=== PATIENT | female | born 1995 | race African-American/Black ===

== ENCOUNTER 2017-04-08 10:43 | Emergency (ER) | payer BC, OTHER ==
[~2017-04-08] VITALS: Ht 165.1 cm; Wt 138.4 kg
[2017-04-08 10:45] VITALS: TEMP 37.1; Ht 165.1 cm; Wt 138.4 kg
[2017-04-08] MEDS ORDERED: PRENTAB65 PO (10:59)
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
[2017-04-08] MEDS ORDERED: ACETAMINOPHEN 325 MG TAB PO STA (13:04)
[2017-04-08 13:40] VITALS: BP 157/72; PULSE 91; O2SAT 100
== END 2017-04-08 13:41 | disposition home or self-care (01) ==
LOC: C.EDB 10:47 → C.EDC 13:41
DX: S62.630A Displaced fracture of distal phalanx of right index finger, initial encounter for closed fracture (principal); S00.83XA Contusion of other part of head, initial encounter; Y04.0XXA Assault by unarmed brawl or fight, initial encounter; Y92.512 Supermarket, store or market as the place of occurrence of the external cause; M54.2 Cervicalgia; J45.909 Unspecified asthma, uncomplicated; Z33.1 Pregnant state, incidental

== ENCOUNTER → 2017-06-28 | Outpatient (CLI) | payer BC, OTHER ==
[~2017-06-28] MED LIST: PRENTAB65 PO
[2017-06-29 14:57] LABS: URINE APPEARANCE CLEAR (CLEAR); URINE BILIRUBIN NEG (NEG); URINE COLOR DK YELLOW; URINE EPITHELIAL CELL AUTO >30 /lpf (0-5); URINE NITRITE NEG (NEG); URINE PH 6.5 (4.5-7.5); URINE SPECIFIC GRAVITY 1.012 (1.000-1.030); UROBILINOGEN NEG (NEG)
[2017-06-29 14:58] LABS: MANUAL MICROSCOPIC REQUIRED? NO; REVIEW REQ? NO
== END | disposition home or self-care (01) ==
LOC: C.LABSPEC 14:41
PROVIDERS: ATTEND Obstetrics & Gynecology
DX: R30.0 Dysuria (principal)

== ENCOUNTER 2017-07-07 11:50 | Inpatient (IN) | payer BC, OTHER ==
[~2017-07-07] VITALS: Ht 165.1 cm; Wt 137.3 kg
[2017-07-07] MEDS ORDERED: LACTATED RINGER'S 1000ML 1,000 ML IV PRN (20:07)
[2017-07-07] MEDS ORDERED: LACTATED RINGER'S 1000ML 1,000 ML IV SCH (20:07)
[2017-07-07] MEDS ORDERED: PENICILLIN G POTASSIUM IV 6 MU in DEXTROSE 5% 250ML 250 ML IV ONE (20:15)
[2017-07-07] MEDS ORDERED: MISOPROSTOLTAB 50 MCG TAB PO ONE (20:15)
[2017-07-07] MEDS ORDERED: VNTHFA/IN INH (20:21)
[2017-07-07 20:25] VITALS: Ht 165.1 cm; Wt 137.3 kg
[2017-07-07] MEDS ORDERED: MISOPROSTOLTAB 50 MCG TAB ONE (20:53)
[2017-07-07] MEDS ORDERED: PENICILLIN G POTASSIUM IV 6 MU in DEXTROSE 5% 250ML IV SCH (21:00)
[2017-07-07 21:47] LABS: HEMATOCRIT 39.3 % (37-47); MEAN CELL VOLUME 85.1 fL (80-100); MEAN CORPUSCULAR HGB CONC 34.1 g/dl (32-36); MEAN PLATELET VOLUME 10.5 fL (7.4-10.4); PLATELET COUNT 347 K/uL (130-400); RED BLOOD COUNT 4.62 M/uL (4.2-5.4); WHITE BLOOD COUNT 13.74 K/uL (4.8-10.8)
[2017-07-08] MEDS: PENICILLIN G POTASSIUM IV 3 MU in DEXTROSE 5% 100ML 100 ML IV PRN ×6 (01:31→23:08)
[2017-07-08] MEDS ORDERED: NURSING VERBAL MED ORDER ONE (01:45)
[2017-07-08] MEDS ORDERED: MISOPROSTOLTAB 50 MCG TAB PO ONE ×2 (02:15→08:00)
[2017-07-08] MEDS ORDERED: MISOPROSTOLTAB 50 MCG TAB PO STA (07:50)
[2017-07-08] MEDS ORDERED: DINOPROSTONE 10 MG INSERT PV ONE (16:45)
[2017-07-08] MEDS ORDERED: BUTORPHANOL TARTRATE 1 MG/ML VIAL IV PRN (17:15)
[2017-07-08] MEDS ORDERED: BUTORPHANOL TARTRATE 1 MG/ML VIAL ONE (17:16)
[2017-07-09] MEDS: PENICILLIN G POTASSIUM IV 3 MU in DEXTROSE 5% 100ML 100 ML IV PRN ×4 (03:33→16:38)
[2017-07-09] MEDS ORDERED: NURSING VERBAL MED ORDER ONE (03:45)
[2017-07-09] MEDS ORDERED: BUTORPHANOL TARTRATE 1 MG/ML VIAL ONE (03:51)
[2017-07-09] MEDS ORDERED: BUTORPHANOL TARTRATE 1 MG/ML VIAL IV PRN (04:15)
[2017-07-09] MEDS ORDERED: OXYTOCIN 30 UNITS/500ML NSS IV ONE (06:38)
[2017-07-09] MEDS ORDERED: LACTATED RINGER'S 1000ML 500 ML IV PRN ×2 (07:01→10:06)
[2017-07-09] MEDS ORDERED: OXYTOCIN 30 UNITS/500ML NSS IV PRN ×2 (07:15→19:00)
[2017-07-09] MEDS ORDERED: BUPIVACAINE 0.25% 30 ML VIAL ONE (09:15)
[2017-07-09] MEDS ORDERED: EpHEDrine SULFATE INJ 50 MG/ML AMP ONE (09:16)
[2017-07-09] MEDS ORDERED: FENTANYL 2MCG/ML ROPIV 1.25MG/ML 100ML BAG EPI ONE (09:16)
[2017-07-09] MEDS ORDERED: FENTANYL CITRATE INJ 50 MCG/1 ML 2 ML VIAL ONE (09:16)
[2017-07-09] MEDS ORDERED: NALOXONE HCL INJ 1 MG in SODIUM CHLORIDE 0.9% 1000ML 1,000 ML IV PRN (10:06)
[2017-07-09] MEDS ORDERED: FENTANYL 2MCG/ML ROPIV 1.25MG/ML 100ML BAG EPI PRN (10:15)
[2017-07-09] MEDS ORDERED: NALBUPHINE HCL INJ 10 MG/ML AMP IV PRN (10:15)
[2017-07-09] MEDS ORDERED: NALOXONE HCL INJ 0.4 MG/1 ML VIAL/CARP IV PRN (10:15)
[2017-07-09] MEDS ORDERED: EpHEDrine SULFATE INJ 50 MG/ML AMP IV PRN (10:15)
[2017-07-09] MEDS ORDERED: DiphenhydrAMINE HCL 50 MG/ML VIAL IV PRN (10:15)
[2017-07-09] MEDS ORDERED: SUPERCREAM 0.870 % 15GM JAR EXT PRN (19:00)
[2017-07-09] MEDS ORDERED: BENZOCAINE 20% AER SPR 82.5 GM CAN EXT PRN (19:00)
[2017-07-09] MEDS ORDERED: ACETAMINOPHEN 325 MG TAB PO PRN (19:00)
[2017-07-09] MEDS ORDERED: OXYTOCIN INJ 10 UNITS/ML VIAL IM ONE (19:00)
[2017-07-09] MEDS ORDERED: OXYCODONE/ACETAMINOPHEN 5-325 TAB PO PRN (19:00)
[2017-07-09] MEDS ORDERED: HYDROCORTISONE ACETATE 25 MG SUPP PR PRN (19:00)
[2017-07-09] MEDS ORDERED: DIPHTHERIA/TETANUS/PERTUSSIS 0.5 ML SYR/VIAL IM. ONE (19:00)
[2017-07-09] MEDS ORDERED: LANOLIN OINT EXT PRN ×2 (19:00)
--- NOTE | 2017-07-09 19:55 | Anesthesia Procedure Note ---
Anesthesia Epidural Removal Nt Date & Time Jul 09, 2017 at 19:55 Vital Signs Pain Intensity: 10.0 Notes Mental Status: alert / awake / arousable, participated in evaluation Nausea / Vomiting: adequately controlled Pain: adequately controlled Airway Patency, RR, SpO2: stable & adequate BP & HR: stable & adequate Hydration State: stable & adequate Neuraxial Anesthesia: was administered Anesthetic Complications: no major complications apparent, pt satisfied with anesthetic care Epidural: removed without complications, with tip intact
[2017-07-09] MEDS: DOCUSATE SODIUM 100 MG CAP PO SCH (20:24)
[2017-07-09] MEDS: IBUPROFEN 600 MG TAB PO PRN (20:27)
[2017-07-09] MEDS: ACETAMINOPHEN/CODEINE 300/30MG TAB PO PRN ×2 (20:41→20:42)
[2017-07-09 21:50] VITALS: BP 135/76; PULSE 69; TEMP 36.8
[2017-07-09 21:55] VITALS: BP 127/66; PULSE 75; TEMP 36.8
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
[2017-07-10] MEDS: IBUPROFEN 600 MG TAB PO PRN ×4 (00:30→20:21)
[2017-07-10 04:15] VITALS: BP 127/101; PULSE 85; TEMP 36.7
[2017-07-10 07:10] VITALS: BP 129/76; PULSE 77; TEMP 36.7
[2017-07-10] MEDS: ACETAMINOPHEN/CODEINE 300/30MG TAB PO PRN ×3 (07:13→20:21)
[2017-07-10 07:40] LABS: HEMATOCRIT 30.8 % (37-47)
[2017-07-10] MEDS: FERROUS SULFATE 325 MG TAB PO SCH (07:57)
[2017-07-10] MEDS: DOCUSATE SODIUM 100 MG CAP PO SCH ×2 (07:58→20:10)
[2017-07-10] MEDS: PRENATAL VITAMIN TAB PO SCH (07:58)
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
[2017-07-10 12:55] VITALS: BP 114/77; PULSE 86; TEMP 36.7; O2SAT 99
[2017-07-10 15:30] VITALS: BP 138/82; PULSE 89; TEMP 36.7
[2017-07-10 19:30] VITALS: BP 126/77; PULSE 89; TEMP 36.8
[2017-07-10] MEDS ORDERED: BISACODYL 5 MG TABEC PO SCH (20:00)
[2017-07-10 23:15] VITALS: BP 126/80; PULSE 94; TEMP 36.9
[2017-07-11] MEDS: IBUPROFEN 600 MG TAB PO PRN ×3 (01:48→11:28)
[2017-07-11] MEDS: ACETAMINOPHEN/CODEINE 300/30MG TAB PO PRN ×3 (01:49→11:28)
[2017-07-11] MEDS ORDERED: BISACODYL 10 MG SUPP PR PRN (07:00)
[2017-07-11 07:21] VITALS: BP 117/55; PULSE 90; TEMP 36.3; O2SAT 98
[2017-07-11] MEDS: DOCUSATE SODIUM 100 MG CAP PO SCH (08:11)
[2017-07-11] MEDS: FERROUS SULFATE 325 MG TAB PO SCH (08:11)
[2017-07-11] MEDS: PRENATAL VITAMIN TAB PO SCH (08:11)
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
--- NOTE | 2017-07-11 09:18 | Discharge Instructions ---
Discharge Instructions Date of Service Jul 11, 2017. Admission Reason for Admission: Induction Discharge Discharge Diagnosis / Problem: toxemia Discharge Goals Goal(s): Routine recovery after delivery Activity Recommendations Activity Limitations: as noted below ACTIVITY RECOMMENDATIONS: * Gradual return to full activity over the next 2-3 weeks. * No lifting - nothing heavier than baby over the next 2-3 weeks. * Do not engage in vigorous exercise, sexual activity or sports until cleared by your physician. * Do not drive or operate any motorized equipment until cleared by your physician. * You may shower/bathe daily. DIET: Resume Previous Diet If Breast-feeding: * Increase caloric intake by 500 calories, eat 3 well balanced meals, 2 high protein snacks a day and drink 6-8 8oz. glasses of fluid per day. BREAST CARE: If you are not breast feeding: * Wear a supportive bra 24 hours a day for one to two weeks. * Avoid stimulating your breasts and nipples as much as possible during the first few weeks after delivery. * When taking a shower, have the warm water hit your back, not breasts. * When your breasts feel full, apply ice packs. Usually three to four times a day helps ease the discomfort. * Take a mild pain medication (Tylenol / Motrin) when you are uncomfortable. If breast feeding: * Use breast milk to lubricate nipples. Lansinoh cream may be used for sore nipples. You do not need to remove cream prior to breast feeding. If using a different brand of cream, check the label for directions regarding removal of cream prior to nursing. * Wear a supportive bra. * If having problems with breasts or breast feeding, call a identity management consultant or your health care provider. OVER THE COUNTER MEDICATION: * For discomfort or pain, you may use Acetaminophen (Tylenol), Ibuprofen (Advil ), or Naproxen (Aleve) following the package directions. * For constipation you may use Colace following the package directions. SPECIAL CARE INSTRUCTIONS: * Vaginal rest (no tampons, douching, intercourse) until after doctor 's visit. * control as discussed with doctor. * Verbalizes understanding of car seat law as reviewed with patient nursing. * Car Seat hand-out given and reviewed with patient by nursing. * Shaken baby information reviewed with patient by nursing. Call you doctor if: * Temperature greater than or equal to 100.4 degrees F or 38.0 degrees C. Take your temperature twice daily for a week. * Bleeding becomes heavier than the heaviest part of your period - saturating a sanitary pad within an hour. * Passing large clots. * Bleeding has a foul smelling odor. * Signs and symptoms of phlebitis: leg pain, warm, red or swollen area on leg. * "Baby Blues" lasting longer than two weeks. ++ If you have had a and incision has increased pain, redness, swelling, presence of any drainage, or if the incision starts to open up. If you have any questions or concerns, call your health care practitioner at [phone]. FOLLOW-UP VISIT: Please call the office at to schedule a 6 week examination. . Instructions / Follow-Up Instructions / Follow-Up ACTIVITY RECOMMENDATIONS: * Gradual return to full activity over the next 2-3 weeks. * No lifting - nothing heavier than baby over the next 2-3 weeks. * Do not engage in vigorous exercise, sexual activity or sports until cleared by your physician. * Do not drive or operate any motorized equipment until cleared by your physician. * You may shower/bathe daily. DIET: Resume Previous Diet If Breast-feeding: * Increase caloric intake by 500 calories, eat 3 well balanced meals, 2 high protein snacks a day and drink 6-8 8oz. glasses of fluid per day. BREAST CARE: If you are not breast feeding: * Wear a supportive bra 24 hours a day for one to two weeks. * Avoid stimulating your breasts and nipples as much as possible during the first few weeks after delivery. * When taking a shower, have the warm water hit your back, not breasts. * When your breasts feel full, apply ice packs. Usually three to four times a day helps ease the discomfort. * Take a mild pain medication (Tylenol / Motrin) when you are uncomfortable. If breast feeding: * Use breast milk to lubricate nipples. Lansinoh cream may be used for sore nipples. You do not need to remove cream prior to breast feeding. If using a different brand of cream, check the label for directions regarding removal of cream prior to nursing. * Wear a supportive bra. * If having problems with breasts or breast feeding, call a identity management consultant or your health care provider. OVER THE COUNTER MEDICATION: * For discomfort or pain, you may use Acetaminophen (Tylenol), Ibuprofen (Advil ), or Naproxen (Aleve) following the package directions. * For constipation you may use Colace following the package directions. SPECIAL CARE INSTRUCTIONS: * Vaginal rest (no tampons, douching, intercourse) until after doctor 's visit. * control as discussed with doctor. * Verbalizes understanding of car seat law as reviewed with patient nursing. * Car Seat hand-out given and reviewed with patient by nursing. * Shaken baby information reviewed with patient by nursing. Call you doctor if: * Temperature greater than or equal to 100.4 degrees F or 38.0 degrees C. Take your temperature twice daily for a week. * Bleeding becomes heavier than the heaviest part of your period - saturating a sanitary pad within an hour. * Passing large clots. * Bleeding has a foul smelling odor. * Signs and symptoms of phlebitis: leg pain, warm, red or swollen area on leg. * "Baby Blues" lasting longer than two weeks. ++ If you have had a and incision has increased pain, redness, swelling, presence of any drainage, or if the incision starts to open up. If you have any questions or concerns, call your health care practitioner at [phone]. FOLLOW-UP VISIT: Please call the office at to schedule a 6 week examination. Current Hospital Diet Patient's current hospital diet: Regular OB Diet Discharge Diet Recommended Diet: Regular Diet Pending Studies Studies pending at discharge: no Medical Emergencies . Who to Call and When: Medical Emergencies: If at any time you feel your situation is an emergency, please call 911 immediately. . Non-Emergent Contact Non-Emergency issues call your: Metal Dresser Call Non-Emergent contact if: temperature is above 100.5 . . "Provider Documentation" section prepared by Parish Salmeron. . VTE Core Measure Inpt VTE Proph given/why not?: Treatment not indicated
[2017-07-11 12:40] VITALS: BP_DIAS 55; PULSE 90; TEMP 36.3
== END 2017-07-11 12:40 | disposition home or self-care (01) | DRG 775 ==
LOC: C.LD 19:34 → C.OBG 07-09 21:30
PROVIDERS: ADMIT Obstetrics & Gynecology; ATTEND Obstetrics & Gynecology
PROC: 10E0XZZ Delivery of Products of Conception, External Approach (ICD-10-PCS; principal; 2017-07-09)
PROC: 3E0P7GC Introduction of Other Therapeutic Substance into Female Reproductive, Via Natural or Artificial Opening (ICD-10-PCS; principal; 2017-07-09)
PROC: 0UQJXZZ Repair Clitoris, External Approach (ICD-10-PCS; principal; 2017-07-09)
PROC: 0UQG7ZZ Repair Vagina, Via Natural or Artificial Opening (ICD-10-PCS; principal; 2017-07-09)
DX: O14.94 Unspecified pre-eclampsia, complicating childbirth (principal); Z68.43 Body mass index [BMI] 50.0-59.9, adult; Z37.0 Single live birth; O70.0 First degree perineal laceration during delivery; O99.52 Diseases of the respiratory system complicating childbirth; J45.909 Unspecified asthma, uncomplicated; O99.214 Obesity complicating childbirth; E66.9 Obesity, unspecified; Z3A.39 39 weeks gestation of pregnancy

== ENCOUNTER 2020-09-02 19:42 | Inpatient (IN) ==
[2020-09-02] MEDS ORDERED: OXYTOCIN 30 UNITS/500 ML BAG IV PRN (20:09)
[2020-09-02 20:40] LABS: Hematocrit (blood only) 36.9 % (37-47); Hemoglobin 12.2 g/dL (12.0-16.0); Mean Corpuscular Hemoglobin 29.5 pg (25-34); Mean Corpuscular Hgb Conc 33.1 g/dL (32-36); Mean Corpuscular Volume 89.1 fL (80-100); Mean Platelet Volume 10.6 fL (7.4-10.4); Platelet Count 275 K/uL (130-400); RDW Coefficient of Variation 15.2 % (11.5-14.5); RDW Standard Deviation 49.5 fL (36.4-46.3); Red Blood Count 4.14 M/uL (4.2-5.4); White Blood Count 16.17 K/uL (4.8-10.8)
[2020-09-02] MEDS ORDERED: miSOPROStoL 50 MCG TAB PO ONE (20:45)
[2020-09-03] MEDS ORDERED: ONDANSETRON INJ 2 MG/ML 2 ML VIAL IV STA (03:33)
[2020-09-03] MEDS ORDERED: ONDANSETRON INJ 2 MG/ML 2 ML VIAL ONE (03:35)
[2020-09-03] MEDS ORDERED: BUTORPHANOL TARTRATE 1 MG/ML VIAL IV PRN (06:04)
[2020-09-03] MEDS: LACTATED RINGER'S 1,000 ML IV PRN ×2 (06:18→07:58)
[2020-09-03] MEDS ORDERED: OXYTOCIN 30 UNITS/500 ML BAG IV PRN ×2 (06:47→16:00)
[2020-09-03] MEDS ORDERED: ePHEDrine sulfate 50 MG/ML AMP ONE (07:15)
[2020-09-03] MEDS ORDERED: BUPIVACAINE 0.25% 30 ML VIAL ONE (07:15)
[2020-09-03] MEDS ORDERED: SODIUM CHLORIDE 0.9% INJ 10 ML VIAL ONE (07:15)
[2020-09-03] MEDS ORDERED: fentaNYL citrate 100 MCG/2 ML VIAL ONE (07:16)
[2020-09-03] MEDS ORDERED: fentaNYL 2MCG/ML ROPIVACAINE 1.25MG/ML 100 ML BAG EPI ONE (07:16)
[2020-09-03] MEDS ORDERED: ONDANSETRON INJ 2 MG/ML 2 ML VIAL IV PRN (07:42)
[2020-09-03] MEDS ORDERED: NALOXONE HCL 1 MG in SODIUM CHLORIDE 0.9% 1000ML 1,000 ML IV PRN (07:42)
[2020-09-03] MEDS ORDERED: NALOXONE HCL 0.4 MG/1 ML VIAL/CARP IV PRN (07:42)
[2020-09-03] MEDS ORDERED: fentaNYL 2MCG/ML ROPIVACAINE 1.25MG/ML 100 ML BAG EPI PRN (07:42)
[2020-09-03] MEDS ORDERED: ePHEDrine sulfate 50 MG/ML AMP IV PRN (07:42)
[2020-09-03] MEDS ORDERED: diphenhydrAMINE 50 MG/ML VIAL IV PRN (07:42)
--- NOTE | 2020-09-03 07:47 | Anesthesiology Consultation ---
Date of Service September 03, 2020 Assessment & Plan (1) Encounter for pre-operative examination: Chart Review Chart Review: Patient NOT seen in Pre Admission Testing and Acceptable Risk for Labor Epidural Consults Requested none History Height/Weight Height: 5 ft 5 in Weight: 127.006 kg Allergies Allergy/AdvReac Type Severity Reaction Status Date / Time pollen extracts Allergy Intermediate ITCHY Verified 06/13/20 02:34 EYES, SNEEZING, CONGESTION Medications Home Medications Medication Instructions Recorded Confirmed Last Taken PNV,calcium 30-gfwa-efexl acid 1 tab PO DAILY 06/13/20 09/02/20 09/02/20 [PrePlus] Active Medications Generic Name Dose Route Start Last Admin Trade Name Freq PRN Reason Stop Dose Admin Butorphanol Tartrate 1 mg 09/03/20 06:04 09/03/20 06:18 Butorphanol Tartrate 1 Mg/Ml Vial IV 10/03/20 06:03 1 mg PRN PRN Administration Pain Lactated Ringer's 1,000 mls @ 125 mls/hr 09/02/20 20:09 09/03/20 07:58 Lr IV 09/04/20 20:08 125 mls/hr .Q8H PRN Administration L&D Protocol Protocol Oxytocin 30 units in 500 mls @ 2 mls/hr 09/03/20 06:47 09/03/20 07:07 Pitocin IV 09/05/20 06:46 0.12 units/hr .Q24H PRN 2 mls/hr Labor Induction/Augmentation Administration Protocol 0.12 UNITS/HR Past Medical History Medical History Abnormal vaginal bleeding Asthma Miscarriage Morbid obesity with BMI of 45.0-49.9, adult Recurrent dislocation, right shoulder Status post elective Toxemia of Exercise / Class Metabolic Activity II 4-5 Yardwork/Stairs/Walk up hill Past Surgical History Surgical History History of dilatation and curettage Past Anesthesia History No Hx of Anesthesia Complications and No Family Hx of Anesthesia Complications History of PONV No Hx of PONV and No Hx of Motion Sickness Social History Smoking Status: Former smoker Do You Dip or Chew Tobacco: No Hx Alcohol Use: No Hx Substance Use: No substance use type: does not use Physical Exam Vital Signs Last Vital Signs Temp 36.6 C 09/03/20 07:00 Pulse 76 09/03/20 08:08 Resp 18 09/03/20 07:00 BP 129/75 09/03/20 07:02 Pulse Ox 100 09/03/20 08:08 Testing Laboratory Results 09/02/20 20:27
[2020-09-03] MEDS ORDERED: NURSING L&D Epidural Breakthrough Pain Update ONE (12:00)
[2020-09-03] MEDS ORDERED: miSOPROStoL 200 MCG TAB ONE (15:52)
[2020-09-03] MEDS ORDERED: miSOPROStoL 200 MCG TAB PR ONE (16:00)
[2020-09-03] MEDS ORDERED: DIPHTHERIA/TETANUS/PERTUSSIS 0.5 ML SYR/VIAL IM ONE (16:00)
[2020-09-03] MEDS ORDERED: ACETAMINOPHEN W/CODEINE #3 1 TAB PO PRN (16:00)
[2020-09-03] MEDS ORDERED: SUPERCREAM 0.870% 15 GM JAR EXT PRN (16:00)
[2020-09-03] MEDS ORDERED: HYDROCORTISONE ACETATE 25 MG SUPP PR PRN (16:00)
[2020-09-03] MEDS ORDERED: oxyCODONE/ACETAMINOPHEN 5mg/325mg TAB PO PRN (16:00)
[2020-09-03] MEDS ORDERED: BENZOCAINE 20% AER SPR 82.5 GM CAN EXT PRN (16:00)
--- NOTE | 2020-09-03 17:14 | Anesthesia Procedure Note ---
Date of Service September 03, 2020 Anesthesia Post Epidural Note Vital Signs Vital Signs: Temp Pulse Resp BP Pulse Ox 37.0 C 79 24 140/60 91 09/03/20 15:04 09/03/20 17:09 09/03/20 15:30 09/03/20 17:09 09/03/20 15:39 Notes Mental Status: alert / awake / arousable and participated in evaluation Patient Amnestic to Procedure: No Nausea / Vomiting: adequately controlled Pain: adequately controlled Airway Patency, RR, SpO2: stable & adequate BP & HR: stable & adequate Hydration State: stable & adequate Neuraxial Anesthesia: was administered and sensory block is resolving Anesthetic Complications: no major complications apparent and Pt Satisfied with anesthetic care Epidural: Removed without complications and With tip intact
--- NOTE | 2020-09-03 17:22 | Delivery Summary ---
DATE OF OPERATION: 09/03/2020 She is a 4, para 2, blood type is O negative, group B strep negative, was brought in for induction at 40 weeks, was given p.o. Cytotec. The following morning, she had dilated up to about 4-5 cm, was switched to IV Pitocin. She eventually went and had an epidural, from which she got good pain relief. She had her membranes then ruptured surgically, went to full dilatation, pushed out a live via direct occiput anterior position over an intact perineum. There was some terminal bradycardia, we turned off the Pitocin, gave her oxygen. Infant was born spontaneously. Cord was allowed to clamp for 1 minute, then it was clamped and cut by the mother. Cord blood was taken. With IV Pitocin running, the placenta was removed intact. Inspection of the perineum revealed a periurethral laceration on the right side. This was extended, which was carefully identified. It was sewn with a running 3-0 chromic gut suture. A red rubber catheter was then inserted into the urethra and into the bladder. Urine was obtained to ensure patency of the urethra. We had a little bit more than average bleeding. So we gave her 800 mcg of rectal Cytotec and with that, she contracted nicely. Estimated blood loss was 300 mL. Apgars were deferred to the nurses. I attest to the content of the Intraoperative Record and any orders documented therein. Any exception s are noted below.
[2020-09-03] MEDS ORDERED: DOCUSATE SODIUM 100 MG CAP PO ONE (19:48)
[2020-09-03] MEDS: IBUPROFEN 600 MG TAB PO PRN (21:27)
[2020-09-03] MEDS: DOCUSATE SODIUM 100 MG CAP PO SCH (23:38)
[2020-09-03] MEDS: ACETAMINOPHEN 325 MG TAB PO PRN (23:49)
[2020-09-04] MEDS: IBUPROFEN 600 MG TAB PO PRN ×2 (03:04→13:27)
[2020-09-04 07:08] LABS: Hematocrit (blood only) 33.3 % (37-47); Mean Corpuscular Hemoglobin 29.5 pg (25-34); Mean Corpuscular Volume 89.3 fL (80-100); Mean Platelet Volume 10.7 fL (7.4-10.4); Platelet Count 245 K/uL (130-400); RDW Standard Deviation 49.3 fL (36.4-46.3); Red Blood Count 3.73 M/uL (4.2-5.4); White Blood Count 13.86 K/uL (4.8-10.8)
[2020-09-04] MEDS: ACETAMINOPHEN 325 MG TAB PO PRN (07:38)
[2020-09-04] MEDS: DOCUSATE SODIUM 100 MG CAP PO SCH (07:38)
[2020-09-04] MEDS ORDERED: PRENATAL VITAMIN 1 TAB PO SCH (08:00)
--- NOTE | 2020-09-04 10:04 | Obstetrical Progress Note ---
Date of Service September 04, 2020 Assessment & Plan Admission and Anticipated Discharge Date Admission Date: September 02, 2020 Physical Exam Physical Exam: abdomen soft and non tender no calf tenderness ambulating well vaginal bleeding scant hgb 11.1 Results & Data ([facility]) Vital Signs (Past 12 Hours) Vital Signs Temp Pulse Pulse Resp BP BP 09/04/20 08:25 37.0 C 69 20 120/70 09/04/20 04:50 36.8 C 65 18 102/59 L 09/03/20 23:50 36.2 C L 75 18 122/69
[2020-09-04] MEDS ORDERED: bisacodyL 5 MG TABEC PO SCH (20:00)
[2020-09-05] MEDS ORDERED: bisacodyL 10 MG SUPP PR PRN (09:00)
== END 2020-09-04 16:40 | disposition home or self-care (01) | DRG 807 ==
LOC: 4S1 19:42 → 4S2 09-03 18:53

== ENCOUNTER 2022-06-22 01:52 | Inpatient (IN) ==
[2022-06-22] MEDS ORDERED: LACTATED RINGER'S 1,000 ML IV PRN (02:15)
[2022-06-22] MEDS ORDERED: OXYTOCIN 30 UNITS/500 ML BAG IV PRN ×3 (02:15→06:39)
[2022-06-22] MEDS ORDERED: LIDOCAINE 1% LOCAL 20 ML VIAL INFIL PRN ×2 (02:15→02:40)
[2022-06-22] MEDS ORDERED: PENICILLIN G POTASSIUM 6 MU in DEXTROSE 5% 250 ML IV STA ×2 (02:15→02:40)
[2022-06-22] MEDS: LACTATED RINGER'S 1,000 ML IV PRN ×2 (02:30→03:30)
--- NOTE | 2022-06-22 03:14 | Labor Progress Brief Note ---
Date of Service June 22, 2022 Assessment & Plan (1) No care in current : Plan: No care Sono done via ER on dated pt at 19 week EDC from that sono therefore places her at 37.5 weeks today FHR; CAT1 Ctx 1-3mins Bedside sono; Vt VE; 50/-2 with bulging membranes Plan Admit anticipate VD Results & Data ([facility]) Vital Signs (Past 12 Hours) Vital Signs Temp Pulse Resp BP 06/22/22 02:04 18 06/22/22 02:04 36.8 C 18 06/22/22 02:12 94 H 159/78 H 06/22/22 02:05 18
[2022-06-22] MEDS ORDERED: SODIUM CHLORIDE 0.9% INJ 10 ML VIAL ONE (03:24)
[2022-06-22] MEDS ORDERED: ePHEDrine sulfate 50 MG/ML AMP ONE (03:24)
[2022-06-22] MEDS ORDERED: fentaNYL citrate 100 MCG/2 ML VIAL ONE (03:24)
[2022-06-22] MEDS ORDERED: fentaNYL 2MCG/ML ROPIVACAINE 1.25MG/ML 100 ML BAG EPI ONE (03:25)
[2022-06-22] MEDS ORDERED: LIDOCAINE 2%/EPINEPHRINE 1:200,000 20 ML SDV ONE (03:25)
[2022-06-22] MEDS ORDERED: BUPIVACAINE 0.25% 30 ML VIAL ONE (03:25)
[2022-06-22 03:34] LABS: Appearance Urine Cloudy (Clear); Bacteria Urine Automated 1+ (Negative); Bilirubin Urine Negative (Negative); Blood Urine Negative (Negative); Color Urine Yellow; Epithelial Cell Urine Auto >30 /lpf (0-5); Glucose Urine UA Negative (Negative); Ketones Urine Negative (Negative); Leukocyte Esterase Urine 3+ (Negative); Nitrite Urine Negative (Negative); Protein Urine 1+ (Negative); RBC Urine Automated 0-4 /hpf (0-4); Specific Gravity Urine 1.023 (1.000-1.030); Urobilinogen Urine Negative (Negative); WBC Urine Automated >30 /hpf (0-5); pH Urine 6.5 (4.5-7.5)
[2022-06-22 03:36] LABS: Hematocrit (blood only) 31.6 % (34.1-44.9); Hemoglobin 9.9 g/dl (12.0-16.0); Mean Corpuscular Hemoglobin 23.2 pg (25.0-34.0); Mean Corpuscular Hgb Conc 31.3 g/dL (32.0-36.0); Mean Corpuscular Volume 74.2 fL (80.0-100.0); Platelet Count 283 K/uL (130-400); RDW Coefficient of Variation 17.1 % (11.5-14.5); RDW Standard Deviation 45.1 fL (36.4-46.3); Red Blood Count 4.26 M/uL (3.93-5.22); White Blood Count 16.87 K/ul (4.8-10.8)
[2022-06-22] MEDS ORDERED: ONDANSETRON INJ 2 MG/ML 2 ML VIAL ONE (03:36)
--- NOTE | 2022-06-22 04:03 | Anesthesiology Consultation ---
Date of Service June 22, 2022 Assessment & Plan Chart Review Chart Review: Acceptable Risk for Labor Epidural Consults Requested none ASA ASA2 Proposed Anesthesia Anesthesia Type: Labor Epidural Risk / Benefits Reviewed With: PT / POA / Parent / Guardian, Accepts Plan and Informed Consent Obtained History Height/Weight Height: 5 ft 4 in Weight: 127.006 kg Allergies Allergy/AdvReac Type Severity Reaction Status Date / Time pollen extracts Allergy Intermediate ITCHY Verified 02/11/22 03:03 EYES, SNEEZING, CONGESTION Medications Home Medications Medication Instructions Recorded Confirmed Last Taken prenat.vits,amarilis,pgi-[id number]-eqpvx tab 06/22/22 06/21/22 Active Medications Generic Name Dose Route Start Last Admin Trade Name Freq PRN Reason Stop Dose Admin Lactated Ringer's 1,000 mls @ 125 mls/hr 06/22/22 02:40 06/22/22 02:30 Lr IV 06/24/22 02:39 999 mls/hr .Q8H PRN Administration L&D Protocol Protocol NPO Date Last Intake of Fluids: 06/22/22 Time Last Intake of Fluids: 03:30 Date Last Intake of Solids: 06/21/22 Time Last Intake of Solids: 18:00 Past Medical History Medical History Abnormal vaginal bleeding Asthma Infected tooth Miscarriage Morbid obesity with BMI of 45.0-49.9, adult Recurrent dislocation, right shoulder Status post elective Toxemia of Exercise / Class Metabolic Activity II 4-5 Yardwork/Stairs/Walk up hill Past Surgical History Surgical History History of dilatation and curettage Past Anesthesia History No Hx of Anesthesia Complications and No Family Hx of Anesthesia Complications History of PONV No Hx of PONV and No Hx of Motion Sickness Social History Smoking Status: Never smoker Hx Alcohol Use: No Alcohol type: wine alcohol intake frequency: holidays/special occasions only Hx Substance Use: No substance use type: does not use Physical Exam Vital Signs Last Vital Signs Temp 36.8 C 06/22/22 02:04 Pulse 79 06/22/22 03:58 Resp 18 06/22/22 02:05 BP 159/78 H 06/22/22 02:12 Pulse Ox 100 06/22/22 03:58 ENMT Mouth: + dentition abnormality (Missing bottom rught upper molar); no TMJ abnormality Thyromental Distance: > or= 3.5 Finger Breadths Mallampati Class: II Neck normal visual inspection and trachea midline; neck extension not limited Respiratory normal respiratory effort Auscultation: lungs clear to auscultation bilaterally Cardiovascular Rate/Rhythm: regular rate and regular rhythm Heart Sounds: no murmur Musculoskeletal Spine: normal cervical ROM Extremities: full ROM of extremities Neurologic moves all extremities Psychiatric Orientation: alert and oriented x 3 Testing Laboratory Results 06/22/22 03:18 Urine Color Yellow 06/22/22 02:50 Urine Appearance Cloudy (Clear) A 06/22/22 02:50 Urine pH 6.5 (4.5-7.5) 06/22/22 02:50 Ur Specific [place] 1.023 (1.000-1.030) 06/22/22 02:50 Urine Protein 1+ (Negative) H 06/22/22 02:50 Urine Glucose (UA) Negative (Negative) 06/22/22 02:50 Urine Ketones Negative (Negative) 06/22/22 02:50 Urine Nitrite Negative (Negative) 06/22/22 02:50 Ur Leukocyte Esterase 3+ (Negative) H 06/22/22 02:50 Urine WBC (Auto) >30 /hpf (0-5) H 06/22/22 02:50 Urine RBC (Auto) 0-4 /hpf (0-4) 06/22/22 02:50 U Hyaline Cast (Auto) 10-30 /lpf (0-5) H 06/22/22 02:50 U Epithel Cells (Auto) >30 /lpf (0-5) H 06/22/22 02:50 Urine Bacteria (Auto) 1+ (Negative) H 06/22/22 02:50
[2022-06-22] MEDS ORDERED: NALBUPHINE HCL INJ 10 MG/ML AMP IV PRN (04:22)
[2022-06-22] MEDS ORDERED: fentaNYL 2MCG/ML ROPIVACAINE 1.25MG/ML 100 ML BAG EPI PRN (04:22)
[2022-06-22] MEDS ORDERED: PROMETHAZINE HCL 25 MG in SODIUM CHLORIDE 0.9% 50 ML IV PRN (04:22)
[2022-06-22] MEDS ORDERED: NALOXONE HCL 0.4 MG/1 ML VIAL/CARP IV PRN (04:22)
[2022-06-22] MEDS ORDERED: ONDANSETRON INJ 2 MG/ML 2 ML VIAL IV PRN (04:22)
[2022-06-22] MEDS ORDERED: ePHEDrine sulfate 50 MG/ML AMP IV PRN (04:22)
[2022-06-22] MEDS ORDERED: METOCLOPRAMIDE HCL 20 MG in SODIUM CHLORIDE 0.9% 50 ML IV PRN (04:22)
[2022-06-22] MEDS ORDERED: diphenhydrAMINE 50 MG/ML VIAL IV PRN (04:22)
[2022-06-22] MEDS ORDERED: NALOXONE HCL 1 MG in SODIUM CHLORIDE 0.9% 1000ML 1,000 ML IV PRN (04:22)
[2022-06-22 04:39] LABS: Rubella IgG Ab Immune (Immune)
[2022-06-22] MEDS ORDERED: PENICILLIN G POTASSIUM 3 MU in DEXTROSE 5% 100 ML IV PRN ×2 (05:15→05:40)
--- NOTE | 2022-06-22 05:22 | Obstetrical Progress Note ---
Date of Service June 22, 2022 Assessment & Plan (1) No care in current : Plan Pt received epidural Review of FH showed late decel Ctx; 2-5min VE; 6-7/90/-2 AROM -clear clear FSE placed position change improved strip Late decels no longer present 'FH is Now CAT1 Anticipate VD Admission and Anticipated Discharge Date Admission Date: June 22, 2022 Results & Data ([facility]) Vital Signs (Past 12 Hours) Vital Signs Temp Pulse Resp BP Pulse Ox 06/22/22 05:18 67 98 06/22/22 05:13 100 06/22/22 05:13 78 06/22/22 05:13 69 152/77 H 06/22/22 05:08 81 100 06/22/22 05:03 77 100 06/22/22 04:58 66 99 06/22/22 04:55 63 130/63 06/22/22 04:53 67 98 06/22/22 04:50 71 122/59 L 06/22/22 04:48 68 97 06/22/22 04:45 65 129/62 06/22/22 04:43 68 98 06/22/22 04:40 67 127/63 06/22/22 04:38 72 97 06/22/22 04:36 63 128/62 06/22/22 04:33 68 98 06/22/22 04:05 18 06/22/22 04:05 18 06/22/22 04:30 74 129/60 06/22/22 04:28 74 98 06/22/22 04:24 70 135/64 06/22/22 04:23 73 97 06/22/22 04:22 72 135/63 06/22/22 04:21 95 H 137/65 06/22/22 04:19 77 163/83 H 06/22/22 04:18 78 100 06/22/22 04:16 88 166/72 H 06/22/22 04:14 82 154/70 H 06/22/22 04:13 80 100 06/22/22 04:08 91 H 100 06/22/22 04:03 83 100 06/22/22 03:58 79 100 06/22/22 03:53 81 100 06/22/22 03:48 83 100 06/22/22 03:46 77 94 06/22/22 03:43 82 100 06/22/22 02:04 18 06/22/22 02:04 36.8 C 18 06/22/22 02:12 94 H 159/78 H 06/22/22 02:05 18
[2022-06-22] MEDS ORDERED: METHYLERGONOVINE MALEATE 0.2 MG/ML AMP ONE (06:19)
[2022-06-22] MEDS ORDERED: miSOPROStoL 200 MCG TAB ONE (06:20)
[2022-06-22] MEDS ORDERED: METHYLERGONOVINE MALEATE 0.2 MG/ML AMP IM ONE (06:39)
[2022-06-22] MEDS ORDERED: DIPHTHERIA/TETANUS/PERTUSSIS 0.5 ML SYR/VIAL IM ONE (06:39)
[2022-06-22] MEDS ORDERED: miSOPROStoL 200 MCG TAB PR ONE (06:39)
[2022-06-22] MEDS ORDERED: bisacodyL 10 MG SUPP PR PRN (06:39)
[2022-06-22] MEDS ORDERED: HYDROCORTISONE ACETATE 25 MG SUPP PR PRN (06:39)
[2022-06-22 06:54] LABS: CO2 Cord Arterial Blood 60 mmHg (39.1-73.5); HCO3 Cord Arterial Blood 25 mmol/L (19.7-28.5); Oxygen Sat Cord Arterial Blood < 60.0 % (<60); PO2 Cord Arterial Blood 18 mmHg (4.1-31.7); pH Cord Arterial Blood 7.23 (7.1-7.38)
[2022-06-22 07:01] LABS: Base Excess Cord Venous Blood -4.3 mEq/L (-7.7-1.9); Cord Venous Blood HCO3 23 mmol/L (18.4-26.8); Cord Venous Blood PCO2 49 mmHg (30.4-57.2); Cord Venous Blood PO2 26 mmHg (14.1-43.3); Cord Venous Blood pH 7.28 (7.20-7.44); O2 Saturation Cord Venous Bld < 60.0 % (<68)
--- NOTE | 2022-06-22 07:12 | Delivery Summary ---
DATE OF DELIVERY: 06/22/2022 DELIVERY NOTE: The patient delivered a live in left occiput anterior presentation. There wer e two tight nuchal cords, which were grabbed and cut. Infant was delivered and placed on mother's ab domen. Pediatric team was present. Apgars 8 and 9, weight is pending. Cord gases were obtained. P gerardo was spontaneously delivered. Inspection of the placenta showed a normal looking placenta wit h 3-vessel cord. Placenta sent to pathology for pathological analysis as well. The patient had no pr enatal care. Inspection of the perineum showed a first-degree periurethral laceration. Estimated blood loss was 500 mL. The patient is stable. All instruments were removed from the vagina and accounted for x2 including sponges, needles, and retractors. Job ID: [id number]
--- NOTE | 2022-06-22 08:37 | Anesthesia Procedure Note ---
Date of Service June 22, 2022 Anesthesia Post Epidural Note Vital Signs Vital Signs: Temp Pulse Resp BP Pulse Ox 36.8 C 83 18 123/64 100 06/22/22 06:35 06/22/22 08:27 06/22/22 06:50 06/22/22 08:06/22/22 06:28 Pain Intensity Lower Abdomen: Pain Intensity: 10 Notes Mental Status: alert / awake / arousable Nausea / Vomiting: adequately controlled Pain: adequately controlled Airway Patency, RR, SpO2: stable & adequate BP & HR: stable & adequate Hydration State: stable & adequate Neuraxial Anesthesia: was administered and sensory block is resolving Anesthetic Complications: no major complications apparent and Pt Satisfied with anesthetic care Epidural: Removed without complications and With tip intact
[2022-06-22 09:41] LABS: Amphetamines+Metham, Urine Neg (Neg); Barbiturates, Urine Neg (Neg); Benzodiazepine, Urine Neg (Neg); Cocaine, Urine Neg (Neg); MDMA (Ecstacy), Urine Neg (Neg); Methadone, Urine Neg (Neg); Opiate, Urine Neg (Neg); Phencyclidine, Urine Neg (Neg)
[2022-06-22] MEDS: IBUPROFEN 600 MG TAB PO PRN ×3 (10:42→22:32)
[2022-06-22] MEDS: BENZOCAINE 20% AER SPR 82.5 GM CAN EXT PRN (12:05)
[2022-06-22] MEDS: ACETAMINOPHEN 325 MG TAB PO PRN ×2 (12:46→19:24)
[2022-06-22] MEDS: PRENATAL VITAMIN 1 TAB PO SCH (19:24)
[2022-06-22] MEDS: DOCUSATE SODIUM 100 MG CAP PO SCH ×2 (19:24→19:27)
[2022-06-23] MEDS: ACETAMINOPHEN 325 MG TAB PO PRN ×2 (02:03→19:40)
[2022-06-23] MEDS: IBUPROFEN 600 MG TAB PO PRN ×4 (03:56→16:31)
[2022-06-23] MEDS: PRENATAL VITAMIN 1 TAB PO SCH (07:51)
[2022-06-23] MEDS: DOCUSATE SODIUM 100 MG CAP PO SCH ×2 (07:51→19:40)
--- NOTE | 2022-06-23 08:33 | Obstetrical Progress Note ---
Date of Service June 23, 2022 Assessment & Plan (1) Normal course: PPD #1 No PNC Pt doing well PN Labs pending + Marijuana hospice social worker will be consulted thru Peds anticipated dich tomorrow Results & Data ([facility]) Vital Signs (Past 12 Hours) Vital Signs Temp Pulse Resp BP Pulse Ox O2 Del Method 06/23/22 04:02 36.6 C 58 L 16 125/78 100 Room Air 06/23/22 00:13 36.8 C 77 16 121/82 99 Room Air
[2022-06-23 09:50] LABS: Hematocrit (blood only) 26.4 % (34.1-44.9); Hemoglobin 8.1 g/dl (12.0-16.0); Mean Corpuscular Hemoglobin 22.7 pg (25.0-34.0); Mean Corpuscular Hgb Conc 30.7 g/dL (32.0-36.0); Mean Corpuscular Volume 73.9 fL (80.0-100.0); Platelet Count 297 K/uL (130-400); RDW Coefficient of Variation 17.1 % (11.5-14.5); RDW Standard Deviation 45.2 fL (36.4-46.3); Red Blood Count 3.57 M/uL (3.93-5.22)
[2022-06-23 13:56] LABS: HBSAG NON-REACTIVE (NON-REACTIVE)
[2022-06-23] MEDS ORDERED: bisacodyL 5 MG TABEC PO SCH (20:00)
--- NOTE | 2022-06-24 06:55 | Obstetrical Progress Note ---
Date of Service June 24, 2022 Assessment & Plan (1) Normal course: PPD #2 pt doing well [facility] with instrcutions Subjective Ambulation: ambulating normally Voiding: no voiding problems Passing Gas:: Yes Diet Tolerance:: regular diet Lochia:: Small Feeding Type:: breast feeding Review of Systems All systems reviewed & are unremarkable except as noted in HPI & below Physical Exam Constitutional WD/WN, vitals as above well developed and well nourished Eyes PERRL, conjunctivae normal, anicteric sclerae Neck trachea midline, no thyromegaly Respiratory normal respiratory effort, lungs clear to auscultation Auscultation: no crackles, no rales and no wheezes Cardiovascular RRR, no murmur, no edema Gastrointestinal (Abdomen) normal bowel sounds, soft, nontender, no hepatosplenomegaly Uterus is below umbilicus Musculoskeletal no cyanosis or clubbing, extremities motor strength 5/5 Skin no rashes, warm and dry Neurologic patellar DTR's 2+ bilat, sensation intact Psychiatric A+Ox3, euthymic affect Genitourinary normal external appearance Results & Data ([facility]) Vital Signs (Past 12 Hours) Vital Signs Temp Pulse Resp BP Pulse Ox O2 Del Method 06/24/22 04:45 36.7 C 78 16 122/79 97 Room Air 06/23/22 20:44 Room Air 06/23/22 20:44 36.8 C 71 18 117/70 100 Room Air
[2022-06-24] MEDS: IBUPROFEN 600 MG TAB PO PRN ×2 (06:57→11:14)
--- NOTE | 2022-06-24 06:58 | Obstetrical Progress Note ---
Date of Service June 24, 2022 Assessment & Plan (1) Normal course: Results & Data ([facility]) Vital Signs (Past 12 Hours) Vital Signs Temp Pulse Resp BP Pulse Ox O2 Del Method 06/24/22 04:45 36.7 C 78 16 122/79 97 Room Air 06/23/22 20:44 Room Air 06/23/22 20:44 36.8 C 71 18 117/70 100 Room Air
[2022-06-24] MEDS: DOCUSATE SODIUM 100 MG CAP PO SCH (08:25)
[2022-06-24] MEDS: PRENATAL VITAMIN 1 TAB PO SCH (08:25)
[2022-06-24 08:44] LABS: Hematocrit (blood only) 28.3 % (34.1-44.9); Hemoglobin 8.8 g/dl (12.0-16.0)
[2022-06-24 10:47] LABS: Marijuana Quant, GCMS Urine 587 ng/mL (<5)
[2022-06-24] MEDS: BENZOCAINE 20% AER SPR 82.5 GM CAN EXT PRN (11:14)
== END 2022-06-24 13:12 | disposition home or self-care (01) | DRG 807 ==
LOC: OPB 01:52 → 4S1 01:53 → 4E2 11:11